=== PATIENT | male | born 1940 ===

== ENCOUNTER 2017-07-13 09:42 | Outpatient (CLI) | payer OTHER ==
[~2017-07-13 09:42] MED LIST: ALTACE10 M1 PO; AMARYL
== END 2017-07-13 15:00 | disposition home or self-care (01) ==
LOC: TOM 09:42
DX: M35.6 Relapsing panniculitis [Weber-Christian] (principal); R10.84 Generalized abdominal pain; Z87.39 Personal history of other diseases of the musculoskeletal system and connective tissue; K65.4 Sclerosing mesenteritis
CPT/HCPCS: 74177; Q9965

== ENCOUNTER 2017-11-07 08:10 | Emergency (ER) | payer OTHER ==
[~2017-11-07] VITALS: Ht 170.2 cm; Wt 93.4 kg
[2017-11-07] MEDS ORDERED: LANTUS SOL100 UNIT/1 SUBCUTANEO (08:21)
== END 2017-11-07 12:37 | disposition home or self-care (01) ==
LOC: ER 08:10
DX: K57.92 Diverticulitis of intestine, part unspecified, without perforation or abscess without bleeding (principal)

== ENCOUNTER 2018-04-10 11:59 | Emergency (ER) | payer OTHER ==
[~2018-04-10] VITALS: Ht 170.2 cm; Wt 81.6 kg
[~2018-04-10 11:59] MED LIST changes: +LANTUS SOL100 UNIT/1 SUBCUTANEO
[2018-04-10] MEDS ORDERED: GLUCOPHAGE XR500 MG PO (12:11)
== END 2018-04-10 17:50 | disposition home or self-care (01) ==
LOC: ER 11:59
DX: R10.32 Left lower quadrant pain (principal)

== ENCOUNTER 2018-11-01 07:26 | Emergency (ER) | payer OTHER ==
[~2018-11-01] VITALS: Ht 170.2 cm; Wt 96.6 kg
[~2018-11-01 07:26] MED LIST changes: +GLUCOPHAGE XR500 MG PO
[2018-11-01] MEDS ORDERED: LIPITOR20 MG (07:39)
[2018-11-01] MEDS ORDERED: CARDESARTAN (07:40)
== END 2018-11-01 13:56 | disposition home or self-care (01) ==
LOC: ER 07:26 → CPU-OBS 07:34 → ER 07:34
DX: I16.0 Hypertensive urgency (principal); I10 Essential (primary) hypertension; R07.89 Other chest pain